=== PATIENT | male | born 1950 | race Two or more races ===

== ENCOUNTER 2019-03-22 14:32 | Emergency (ER) | payer BC ==
[~2019-03-22] VITALS: Ht 170.2 cm; Wt 83.9 kg
[2019-03-22 14:40] VITALS: BP 158/108
== END 2019-03-22 17:41 | disposition home or self-care (01) ==
LOC: ER 14:35
DX: J40 Bronchitis, not specified as acute or chronic (principal)
CPT/HCPCS: 71045-TC

== ENCOUNTER 2019-11-19 08:15 | Inpatient (IN) | payer BC ==
[~2019-11-19] VITALS: Ht 167.6 cm; Wt 81.6 kg
--- NOTE | 2019-11-19 08:23 | NUR ---
urine collected and sent to lab
--- NOTE | 2019-11-19 08:23 | NUR ---
Dr. Ridley at bedside for eval
--- NOTE | 2019-11-19 08:23 | NUR ---
patient came in to the er c/o abd pain and nausea vomiting since yesterday 03/08 ps. On room air, breathing evenly and unlabored. connected to the monitor and pulse ox. kept comfortable, will continue to monitor accordingly.
--- NOTE | 2019-11-19 08:32 | NUR ---
wheeled patient via gurney to ct scan
[2019-11-19 08:38] LABS: BASOPHILS % (AUTO) 0.3 % (0.0-2.0); EOSINOPHILS % (AUTO) 0.7 % (0.0-6.0); HEMATOCRIT 44 % (39-51); HEMOGLOBIN 14.8 g/dL (13.5-17.5); LYMPHOCYTES # (AUTO) 1.3 /CMM (0.8-4.8); LYMPHOCYTES % (AUTO) 18.1 % (20.0-44.0); MEAN CORPUSCULAR HGB CONC 34 g/dl (31.0-36.0); MEAN CORPUSCULAR VOLUME 98 fL (80-96); MONOCYTES # (AUTO) 0.9 /CMM (0.1-1.30); MONOCYTES % (AUTO) 12.7 % (2.0-12.0); NEUTROPHILS # (AUTO) 4.9 /CMM (1.8-8.9); NEUTROPHILS % (AUTO) 68.2 % (43.0-81.0); PLATELET COUNT (AUTO) 260 /CMM (150-450); RED BLOOD CELL COUNT(AUTO) 4.42 MIL/uL (4.5-6.0); WHITE BLOOD COUNT (AUTO) 7.2 K/uL (4.3-11.0)
[2019-11-19 08:43] LABS: BILIRUBIN,URINE SMALL (NEGATIVE); BLOOD, URINE Small Ery/uL (NEGATIVE); COLOR,URINE DARK YELLOW (YELLOW); KETONES,URINE 15 (NEGATIVE); LEUKOCYTE ESTERASE ,URINE Negative (NEGATIVE); NITRITE, URINE Negative (NEGATIVE); PH,URINE 7.5 (5.0-8.0); PROTEIN,URINE 30 mg/dl (NEGATIVE); UGLUCOSE Negative (NEGATIVE)
[2019-11-19 08:44] LABS: APPEARANCE,URINE HAZY (CLEAR)
[2019-11-19 08:47] LABS: CALCIUM, SERUM 8.7 mg/dL (8.5-10.1); CREATININE 0.9 mg/dL (0.6-1.3); POTASSIUM 3.6 mmol/L (3.5-5.1)
[2019-11-19 08:50] LABS: BACTERIA,URINE Few /HPF (None Seen); MUCUS,URINE Moderate /LPF (None Seen); SQUAMOUS EPITHELIAL CELL,UR Few /HPF (None Seen); WBC,URINE 0-2 /HPF (0-3)
[2019-11-19 08:55] LABS: ALBUMIN 4.3 g/dL (3.4-5.0); BILIRUBIN,DIRECT 0.1 mg/dL (0.0-0.2); BILIRUBIN,TOTAL 0.7 mg/dL (0.2-1.0); TOTAL PROTEIN, SERUM 7.8 g/dL (6.4-8.2)
[2019-11-19] MEDS ORDERED: ONDANSETRON HCL/PF 4 MG/2 ML VIAL ONE (09:12)
[2019-11-19] MEDS ORDERED: IV NS 0.9% 50 ML IV ONE (09:30)
[2019-11-19] MEDS ORDERED: ONDANSETRON HCL/PF - ER 4 MG/2 ML VIAL IV ONE (09:30)
[2019-11-19] MEDS ORDERED: IV NS 0.9% 1,000 ML IV ONE ×3 (09:30)
--- NOTE | 2019-11-19 09:43 | NUR ---
Report given to Gagandeep MAGANA for amparo
--- NOTE | 2019-11-19 09:58 | NUR ---
wheeled patient via gurney accompanied by EMT in no distress. RN at bedside to assume care.
[2019-11-19] MEDS ORDERED: Z GUARD REMEDY 2 OZ OINT TP PRN (10:00)
[2019-11-19] MEDS ORDERED: ACETAMINOPHEN 650 MG/SUPP.RECT RC PRN (10:00)
[2019-11-19] MEDS ORDERED: LORAZEPAM INJ 2 MG/ML VIAL IV PRN (10:00)
[2019-11-19] MEDS ORDERED: ONDANSETRON HCL/PF 4 MG/2 ML VIAL IVP PRN (10:00)
--- NOTE | 2019-11-19 10:00 | NUR ---
MS/RN NOTES RECEIVED REPORT FROM ER WITH A 69 YEAR OLD A MALE WITH ADMITTING DIAGNOSIS OF ACUTE ABDOMINAL PAIN . PATIENT IS ALERT AND ORIENTED X4. INITIAL VITAL SIGN TAKEN AND RECORDED. WILL CONTINUE TO MONITOR.
[2019-11-19] MEDS: PANTOPRAZOLE 40 MG VIAL IV SCH (10:49)
[2019-11-19 11:30] VITALS: BP 140/80
[2019-11-19] MEDS: MORPHINE SULFATE INJ 2 MG/ML DISP.SYRIN IV PRN ×2 (12:45→18:06)
--- NOTE | 2019-11-19 12:46 | NUR ---
MS/RN NOTES PATIENT COMPLAINED OF PAIN RATED 10/10 MORPHINE 4MG IV WAS GIVEN. WILL CONTINUE TO MONITOR.
[2019-11-19 16:00] VITALS: BP 134/66
--- NOTE | 2019-11-19 17:22 | NUR ---
MS/RN NOTES PATIENT COMPLAINED OF PAIN RATED 6/10. SERGIO HERNANDES NORCO 5/325 MG 1 TAB PO EVERY 4 HOURS AND PRN. NOTED AND CARRIED OUT. WILL CONTINUE TO MONITOR. Addendum: 11/19/19 at 1746 by CARMENCITA ANDRE RN WRONG PATIENT
[2019-11-19] MEDS ORDERED: HYDROCODONE/APAP 5/325MG 1 EACH TABLET PO PRN (17:30)
--- NOTE | 2019-11-19 19:24 | NUR ---
MS/RN CLOSING NOTES PATIENT IN BED, ALERT AND ORIENTED X 3. AFEBRILE WITH NO S/S OF DISTRESS OBSERVED. RIGHT AC G22 WITH IV FLUID OF NS 1L AT 100 ML/HR ON AND INFUSING WELL. NO COMPLAINTS OF PAIN/DISCOMFORT REPORTED AT THIS TIME. BED LOW AND LOCKED ON SEMI FOWLERS POSITION. CALL LIGHT WITHIN REACH. WILL ENDORSED TO CRATE BUILDER FOR ANGELA.
--- NOTE | 2019-11-19 19:45 | NUR ---
MS RN OPENING NOTES RECEIVED PATIENT FROM MORNING SHIFT, ALERT AND ORIENTED X 3. CHINESE SPEAKING VERBALLY RESPONSIVE AND ABLE TO FOLLOW DIRECTIONS. BREATHING REGULAR AND UNLABORED ON ROOM AIR. RIGHT AC G22 IV LINE INTACT AND PATENT, INFUSING WELL WITH NO BLEEDING OR S/S OF INFILTRATION NOTED. DENIES SUICIDAL IDEATION OR PAIN/DISCOMFORT AT THIS TIME. ON NOTHING BY MOUTH. BED LOW AND LOCKED ON SEMI FOWLERS POSITION. CALL LIGHT IN REACH. WILL CONTINUE TO MONITOR.
[2019-11-19 20:00] VITALS: BP 115/66
--- NOTE | 2019-11-19 20:45 | NUR ---
MS RN NOTES SEEN AND EXAMINED BY DR.SAM GONSALEZ WITH ORDERS TO INSERT NG TUBE IF PATIENT VOMITS AND SMALL BOWEL FOLLOW-TROUGH IN AM, PATIENT NOTIFIED AT BEDSIDE.
[2019-11-19] MEDS: IV NS 0.9% 1,000 ML IV PRN (23:42)
--- NOTE | 2019-11-20 06:45 | NUR ---
MS RN CLOSING NOTES PATIENT IN BED ALERT AND ORIENTED X 3. AFEBRILE WITH NO S/S OF DISTRESS OBSERVED. RIGHT AC G22 IV LINE PATENT AND INFUSING WELL. NO COMPLAINTS OF PAIN/DISCOMFORT REPORTED THE WHOLE SHIFT. MAINTAINED ON NOTHING BY MOUTH. BED LOW AND LOCKED ON SEMI FOWLERS POSITION. CALL LIGHT IN REACH. WILL ENDORSE TO MORNING SHIFT FOR ANGELA.
[2019-11-20 07:10] LABS: BASOPHILS % (AUTO) 0.2 % (0.0-2.0); EOSINOPHILS % (AUTO) 1.5 % (0.0-6.0); HEMATOCRIT 39 % (39-51); HEMOGLOBIN 13.2 g/dL (13.5-17.5); LYMPHOCYTES % (AUTO) 19.6 % (20.0-44.0); MEAN CORPUSCULAR HGB CONC 34 g/dl (31.0-36.0); MEAN CORPUSCULAR VOLUME 98 fL (80-96); MONOCYTES # (AUTO) 0.5 /CMM (0.1-1.30); NEUTROPHILS # (AUTO) 3.3 /CMM (1.8-8.9); NEUTROPHILS % (AUTO) 67.7 % (43.0-81.0); PLATELET COUNT (AUTO) 215 /CMM (150-450); WHITE BLOOD COUNT (AUTO) 4.9 K/uL (4.3-11.0)
[2019-11-20 07:20] LABS: CREATININE 0.7 mg/dL (0.6-1.3); MAGNESIUM 2.1 mg/dL (1.8-2.4); POTASSIUM 3.7 mmol/L (3.5-5.1)
--- NOTE | 2019-11-20 07:35 | NUR ---
MS/RN NOTE THE PATIENT IS RECEIVED IN BED. PATIENT IS ALERT AND ORIENTED X4. IN ROOM AIR AND DENIES SOB. RESPIRATION REGULAR AND UNLABORED. DENIES PAIN. THE PATIENT IS IN NO APPARENT DISTRESS. NPO. ABDOMEN SOFT AND NON-DISTENDED. RAC G 22 PATENT AND NS INFUSING AT 100ML/HR AND NO S/S INFILTRATION NOTED. BED LOW AND LOCKED. SIDE RAILS UP X2. CALL LIGHT WITHIN REACH. WILL CONTINUE TO MONITOR.
[2019-11-20 08:00] VITALS: BP 116/70
[2019-11-20] MEDS ORDERED: DIATR MEGLU/DIATRIZOATE SODIUM 120 ML BOTTLE (GASTROGRAPHIN) ONE (08:15)
[2019-11-20] MEDS: PANTOPRAZOLE 40 MG VIAL IV SCH (08:28)
--- NOTE | 2019-11-20 08:28 | NUR ---
MS/RN NOTE THE PATIENT TRANSFERRED TO RADIOLOGY DEPARTMENT FOR SMALL BOWEL STUDY. THE PATIENT LEFT THE UNIT IN STABLE CONDITION.
--- NOTE | 2019-11-20 10:04 | NUR ---
MS/RN NOTE THE PATIENT IS BROUGHT BACK FROM RADIOLOGY DEPARTMENT. REMAINS NPO. NO NAUSEA OR VOMITING NOTED. WILL CONTINUE TO MONITOR.
[2019-11-20] MEDS: ENOXAPARIN SODIUM 40 MG/0.4 ML DISP.SYRIN SQ SCH (10:07)
--- NOTE | 2019-11-20 15:16 | NUR ---
/[place] NOTE CHARLIE SAENZ IS MADE AWARE OF SMALL BOWEL XRAY RESULT. WAITING FOR ORDERS. Addendum: 11/20/19 at 1524 by ANTHONY MICHAEL RN /[place] NOTE RECEIVED ORDER FROM CHARLIE SAENZ FOR CLEAR LIQUID DIET STARTING FROM [facility] 11/20/19 AND ADVANCE DIET TOLERATED TO LOW FAT/CHOLESTEROL DIET, INFORM DR GONSALEZ IS THE PATIENT GETS ABDOMINAL PAIN. ORDERS READ BACK, VERIFIED. NOTED AND CARRIED OUT.
[2019-11-20 16:00] VITALS: BP 121/73
--- NOTE | 2019-11-20 18:08 | NUR ---
MS/RN NOTE THE PATIENT IS ALERT AND ORIENTED X4. IN ROOM AIR AND OXYGEN SATURATION IS AT 98%. DENIES SOB. BREATHING REGULAR AND UNLABORED. TOLERATED CLEAR LIQUID DIET WELL. DENIES ANY PAIN. ABDOMEN SOFT AND NON-DISTENDED. DENIES NAUSEA/VOMITING. RAC G 22 PATENT AND NS INFUSING AT 100ML/HR AND NO S/S INFILTRATION NOTED. BED LOW AND LOCKED. SIDE RAILS UP X2. CALL LIGHT WITHIN REACH. WILL ENDORSE TO SUPERVISOR VOLUNTEER SERVICES.
--- NOTE | 2019-11-20 19:20 | NUR ---
RN OPENING NOTES Received patient awake, resting on bed, A/O x4, able to attend personal needs independently. Patient denies any discomfort at this time. Call light within easy reach. Will continue to monitor accordingly.
[2019-11-20] MEDS: IV NS 0.9% 1,000 ML IV PRN (19:45)
[2019-11-20 20:00] VITALS: BP 122/71
[2019-11-20] MEDS: MORPHINE SULFATE INJ 2 MG/ML DISP.SYRIN IV PRN (21:56)
[2019-11-21] MEDS: IV NS 0.9% 1,000 ML IV PRN (06:12)
--- NOTE | 2019-11-21 07:00 | NUR ---
MS RN NOTES PATIENT IN BED ALERT ORIENTED X 4. NO ACUTE DISTRESS NOTED. BREATHING UNLABORED. NO COMPLAINT OF PAIN AT THIS TIME. IV ACCESS PATENT AND INTACT. NO REDNESS , NO SWELLING NOTED. SAFETY MEASURES IN PLACE. CALL LIGHT WITHIN REACH WILL CONTINUE TO MONITOR ACCORDINGLY.
[2019-11-21 07:19] LABS: BASOPHILS % (AUTO) 0.6 % (0.0-2.0); EOSINOPHILS % (AUTO) 4.2 % (0.0-6.0); HEMATOCRIT 40 % (39-51); HEMOGLOBIN 13.3 g/dL (13.5-17.5); LYMPHOCYTES # (AUTO) 1.1 /CMM (0.8-4.8); MEAN CORPUSCULAR HGB CONC 34 g/dl (31.0-36.0); MEAN CORPUSCULAR VOLUME 98 fL (80-96); MONOCYTES # (AUTO) 0.5 /CMM (0.1-1.30); MONOCYTES % (AUTO) 11.9 % (2.0-12.0); NEUTROPHILS # (AUTO) 2.6 /CMM (1.8-8.9); NEUTROPHILS % (AUTO) 58.3 % (43.0-81.0); PLATELET COUNT (AUTO) 235 /CMM (150-450); RED BLOOD CELL COUNT(AUTO) 4.03 MIL/uL (4.5-6.0); WHITE BLOOD COUNT (AUTO) 4.4 K/uL (4.3-11.0)
[2019-11-21 07:39] LABS: CALCIUM, SERUM 8.4 mg/dL (8.5-10.1); POTASSIUM 3.7 mmol/L (3.5-5.1)
[2019-11-21 08:00] VITALS: BP 148/81
[2019-11-21] MEDS: ENOXAPARIN SODIUM 40 MG/0.4 ML DISP.SYRIN SQ SCH (08:49)
[2019-11-21] MEDS: PANTOPRAZOLE 40 MG VIAL IV SCH (08:49)
--- NOTE | 2019-11-21 10:46 | NUR ---
MS RN NOTES PATIENT SEEN AND EVALUATED BY ALETHA CHI SPOOLER OPERATOR AUTOMATIC, WITH NEW ORDERS TO DISCONTINUE PREVIOUS DIET ORDER CHANGE TO REGULAR LOW FAT, LOW CHOLESTEROL DIET, ORDERS CLARIFIED AND READ BACK, NOTED AND CARRIED OUT.
[2019-11-21 16:00] VITALS: BP 132/80
--- NOTE | 2019-11-21 18:55 | NUR ---
MS RN NOTES PATIENT IN BED ALERT ORIENTED X 4. NO ACUTE DISTRESS NOTED. BREATHING UNLABORED. NO COMPLAINT OF PAIN AT THIS TIME. IV ACCESS PATENT AND INTACT. NO REDNESS , NO SWELLING NOTED. NEEDS ATTENDED AND ANTICIPATED. TOLERATED CURRENT DIET WELL. SAFETY MEASURES IN PLACE. CALL LIGHT WITHIN REACH. WILL ENDORSE TO NIGHT NURSE FOR CONTINUITY OF CARE.
--- NOTE | 2019-11-21 19:15 | NUR ---
RN OPENING NOTES Received patient awake, resting on bed. No distress/discomfort noted at this time. Pt attend personal needs independently. Call light within easy reach.
[2019-11-21 19:45] VITALS: BP 131/83
[2019-11-22 07:43] LABS: BASOPHILS # (AUTO) 0.1 /CMM (0.0-0.2); BASOPHILS % (AUTO) 1.2 % (0.0-2.0); EOSINOPHILS % (AUTO) 3.8 % (0.0-6.0); HEMATOCRIT 42 % (39-51); HEMOGLOBIN 14.2 g/dL (13.5-17.5); LYMPHOCYTES % (AUTO) 22.3 % (20.0-44.0); MEAN CORPUSCULAR HGB CONC 34 g/dl (31.0-36.0); MEAN CORPUSCULAR VOLUME 97 fL (80-96); MONOCYTES # (AUTO) 0.6 /CMM (0.1-1.30); MONOCYTES % (AUTO) 12.9 % (2.0-12.0); NEUTROPHILS # (AUTO) 2.8 /CMM (1.8-8.9); NEUTROPHILS % (AUTO) 59.8 % (43.0-81.0); PLATELET COUNT (AUTO) 259 /CMM (150-450); RED BLOOD CELL COUNT(AUTO) 4.29 MIL/uL (4.5-6.0); WHITE BLOOD COUNT (AUTO) 4.7 K/uL (4.3-11.0)
[2019-11-22 07:56] LABS: CALCIUM, SERUM 8.7 mg/dL (8.5-10.1); CREATININE 0.9 mg/dL (0.6-1.3); POTASSIUM 3.6 mmol/L (3.5-5.1)
[2019-11-22 08:00] VITALS: BP 135/84
[2019-11-22] MEDS: ENOXAPARIN SODIUM 40 MG/0.4 ML DISP.SYRIN SQ SCH (08:56)
[2019-11-22] MEDS: PANTOPRAZOLE 40 MG VIAL IV SCH (08:59)
--- NOTE | 2019-11-22 16:47 | NUR ---
MS RECORDS MANAGEMENT DIRECTOR NOTES PATIENT DISCHARGE HOME WITH STABLE VITAL SIGNS. ALERT ORIENTED X 4, AMBULATORY WITH STEADY GAIT. DISCHARGE INSTRUCTIONS GIVEN TO THE PATIENT INCLUDING FOLLOW UP WITH PRIMARY DOCTOR AND SURGERY DOCTOR IN 1 WEEK, VERBALIZED UNDERSTANDING. IV ACCESS REMOVED, NO REDNESS,NO BLEEDING, NO SWELLING NOTED. ALL BELONGINGS ACCOUNTED FOR. ASSISTED TO THE LOBBY, PICKED UP VIA PRIVATE CAR BY FAMILY IN STABLE CONDITION.
== END 2019-11-22 16:47 | disposition home or self-care (01) | DRG 390 ==
LOC: ER 08:22 → MEDSG2 09:47
PROVIDERS: ADMIT Nurse Practitioner Acute Care; ATTEND Nurse Practitioner Acute Care
DX: K56.609 Unspecified intestinal obstruction, unspecified as to partial versus complete obstruction (principal); K82.8 Other specified diseases of gallbladder; K56.7 Ileus, unspecified; Z68.29 Body mass index [BMI] 29.0-29.9, adult
CPT/HCPCS: 36415; 74250-TC; 80048-TC; 80061-TC; 80076-TC; 81000-TC; 83690-TC; 83735-TC; 84100-TC; 85025-TC; 87081-TC; 93307-TC; A4216; C9113; G0378; J1650; J2270; J2405; J7030; Q9963; U0003-CS

== ENCOUNTER 2020-02-21 16:21 | Emergency (ER) | payer BC ==
[~2020-02-21] VITALS: Ht 167.6 cm; Wt 75.7 kg
[2020-02-21 16:32] VITALS: BP 134/77
[2020-02-21] MEDS ORDERED: KETOROLAC TROMETHAMINE INJ 60 MG/2 ML VIAL IM ONE (17:30)
[2020-02-21] MEDS ORDERED: KETOROLAC TROMETHAMINE INJ 30 MG/ML VIAL ONE (17:32)
--- NOTE | 2020-02-21 17:46 | NUR ---
MEDICATED ORDERED,NO ADVERSE RXN NOTED
--- NOTE | 2020-02-21 17:47 | NUR ---
Patient discharged to in stable condition. Written and verbal after care instructions given. Patient verbalizes understanding of instruction.
== END 2020-02-21 18:00 | disposition home or self-care (01) ==
LOC: ER 16:32
DX: S16.1XXA Strain of muscle, fascia and tendon at neck level, initial encounter (principal); X58.XXXA Exposure to other specified factors, initial encounter; Y93.89 Activity, other specified; Y92.89 Other specified places as the place of occurrence of the external cause; Y99.8 Other external cause status
CPT/HCPCS: 96372; 99283; J1885

== ENCOUNTER 2020-03-28 07:28 | Outpatient (CLI) | payer BC ==
[2020-03-28 08:32] LABS: BASOPHILS # (AUTO) 0.1 /CMM (0.0-0.2); BASOPHILS % (AUTO) 1.1 % (0.0-2.0); EOSINOPHILS % (AUTO) 2.6 % (0.0-6.0); HEMATOCRIT 44 % (39-51); HEMOGLOBIN 14.9 g/dL (13.5-17.5); LYMPHOCYTES # (AUTO) 1.4 /CMM (0.8-4.8); LYMPHOCYTES % (AUTO) 28.4 % (20.0-44.0); MEAN CORPUSCULAR HGB CONC 34 g/dl (31.0-36.0); MEAN CORPUSCULAR VOLUME 98 fL (80-96); MONOCYTES # (AUTO) 0.6 /CMM (0.1-1.30); MONOCYTES % (AUTO) 12.1 % (2.0-12.0); NEUTROPHILS # (AUTO) 2.7 /CMM (1.8-8.9); NEUTROPHILS % (AUTO) 55.8 % (43.0-81.0); PLATELET COUNT (AUTO) 236 /CMM (150-450); RED BLOOD CELL COUNT(AUTO) 4.47 MIL/uL (4.5-6.0); WHITE BLOOD COUNT (AUTO) 4.8 K/uL (4.3-11.0)
[2020-03-28 08:48] LABS: APPEARANCE,URINE SL CLOUDY (CLEAR); BILIRUBIN,URINE NEGATIVE (NEGATIVE); BLOOD, URINE SMALL Ery/uL (NEGATIVE); COLOR,URINE YELLOW (YELLOW); KETONES,URINE NEGATIVE (NEGATIVE); LEUKOCYTE ESTERASE ,URINE NEGATIVE (NEGATIVE); NITRITE, URINE NEGATIVE (NEGATIVE); PROTEIN,URINE NEGATIVE (NEGATIVE); UGLUCOSE NEGATIVE (NEGATIVE); UROBILINOGEN,URINE 0.2 EU/dL (0.2)
[2020-03-28 09:04] LABS: ALBUMIN 4.2 g/dL (3.4-5.0); BILIRUBIN,TOTAL 0.6 mg/dL (0.2-1.0); CALCIUM, SERUM 8.9 mg/dL (8.5-10.1); CREATININE 0.9 mg/dL (0.6-1.3); POTASSIUM 3.9 mmol/L (3.5-5.1)
[2020-03-28 09:16] LABS: FREE T4 (FREE THYROXINE) 0.99 ng/dL (0.76-1.46); PROSTATE SPECIFIC ANTIGEN SCR 2.46 ng/mL (0.00-4.00); THYROID STIMULATING HORMONE 2.358 uIU/mL (0.358-3.74); URIC ACID 5.2 mg/dL (2.6-7.2)
[2020-03-29 08:06] LABS: FOLIC ACID 12.9 ng/mL (>3.0)
== END 2020-03-28 23:59 | disposition home or self-care (01) ==
LOC: LAB 07:28
PROVIDERS: ATTEND Legal Medicine
DX: I10 Essential (primary) hypertension (principal); E11.9 Type 2 diabetes mellitus without complications; E78.00 Pure hypercholesterolemia, unspecified; E03.9 Hypothyroidism, unspecified; D64.9 Anemia, unspecified; N40.0 Benign prostatic hyperplasia without lower urinary tract symptoms; E55.9 Vitamin D deficiency, unspecified; R53.1 Weakness; Z00.00 Encounter for general adult medical examination without abnormal findings
CPT/HCPCS: 36415; 80053-TC; 80061-TC; 81000-TC; 82306; 82626; 82728-TC; 83540-TC; 84153-TC; 84402; 84403; 84439-TC; 84443-TC; 84550-TC; 85025-TC; 87086-TC

== ENCOUNTER 2021-03-17 03:00 | Inpatient (IN) | payer BC ==
[~2021-03-17] VITALS: Ht 172.7 cm; Wt 86.2 kg
--- NOTE | 2021-03-17 03:15 | NUR ---
PATIENT BIBSELF C/O MID EPIGASTRIC PAIN FOR THE PAST HR AGO. PATIENT + NAUSEOUS. PATIENT IS A/O X 4, RR EVEN AND UNLABORED, NO SOB NOTED, PATIENT CONNECTED TO APPLICATION PROJECT LEADER AND POX.
--- NOTE | 2021-03-17 03:19 | NUR ---
at bed side
[2021-03-17] MEDS ORDERED: MAG HYDROX/AL HYDROX/SIMETH 30 ML UDC ONE (03:25)
[2021-03-17] MEDS ORDERED: LIDOCAINE VISCOUS 2% UD 15 ML UDC ONE (03:25)
[2021-03-17] MEDS ORDERED: LIDOCAINE VISCOUS 2% UD 15 ML UDC MM ONE (03:30)
[2021-03-17] MEDS ORDERED: MAG HYDROX/AL HYDROX/SIMETH 30 ML UDC PO ONE (03:30)
[2021-03-17] MEDS ORDERED: IV NS 0.9% 500 ML BAG IV ONE (03:30)
[2021-03-17 03:35] LABS: BASOPHILS % (AUTO) 0.5 % (0.0-2.0); EOSINOPHILS % (AUTO) 2.5 % (0.0-6.0); HEMATOCRIT 42 % (39-51); HEMOGLOBIN 14.2 g/dL (13.5-17.5); LYMPHOCYTES # (AUTO) 0.9 K/uL (0.8-4.8); LYMPHOCYTES % (AUTO) 12.4 % (20.0-44.0); MEAN CORPUSCULAR HGB CONC 34 g/dl (31.0-36.0); MEAN CORPUSCULAR VOLUME 99 fL (80-96); MONOCYTES # (AUTO) 0.7 K/uL (0.1-1.30); MONOCYTES % (AUTO) 9.6 % (2.0-12.0); NEUTROPHILS # (AUTO) 5.5 K/uL (1.8-8.9); PLATELET COUNT (AUTO) 238 K/uL (150-450); RED BLOOD CELL COUNT(AUTO) 4.21 MIL/uL (4.5-6.0); WHITE BLOOD COUNT (AUTO) 7.4 K/uL (4.3-11.0)
[2021-03-17 03:45] LABS: CALCIUM, SERUM 8.7 mg/dL (8.5-10.1); CARBON DIOXIDE 28 mmol/L (21-32); CHLORIDE 105 mmol/L (98-107); GLUCOSE 129 mg/dL (74-106); POTASSIUM 3.5 mmol/L (3.5-5.1); SODIUM SERUM 142 mmol/L (136-145); UREA NITROGEN, BLOOD 15 mg/dL (7-18)
[2021-03-17 03:51] LABS: ALANINE AMINOTRANSFERASE 45 U/L (12-78); ALBUMIN 4.2 g/dL (3.4-5.0); ALKALINE PHOSPHATASE 59 U/L (46-116); ASPARTATE AMINOTRANSFERASE 25 U/L (15-37); BILIRUBIN,DIRECT 0.1 mg/dL (0.0-0.2); BILIRUBIN,TOTAL 0.5 mg/dL (0.2-1.0); LIPASE 129 U/L (73-393); TOTAL PROTEIN, SERUM 7.7 g/dL (6.4-8.2)
[2021-03-17] MEDS ORDERED: ONDANSETRON HCL/PF 4 MG/2 ML VIAL ONE (03:51)
[2021-03-17] MEDS ORDERED: MORPHINE SULFATE INJ 4 MG/ML DISP.SYRIN ONE (03:52)
[2021-03-17] MEDS ORDERED: MORPHINE SULFATE INJ 2 MG/ML DISP.SYRIN IV ONE (04:00)
[2021-03-17] MEDS ORDERED: ONDANSETRON HCL/PF 4 MG/2 ML VIAL IVP ONE (04:00)
--- NOTE | 2021-03-17 04:36 | NUR ---
US TECH AT BED SIDE
--- NOTE | 2021-03-17 04:50 | NUR ---
URINE COLLECTED AND SENT TO LAB
[2021-03-17] MEDS ORDERED: IOHEXOL-300 100 ML VIAL IV ONE (05:12)
[2021-03-17] MEDS ORDERED: IV NS 0.9% 250 ML IV ONE (05:12)
[2021-03-17 05:26] LABS: BILIRUBIN,URINE NEGATIVE (NEGATIVE); COLOR,URINE YELLOW (YELLOW); LEUKOCYTE ESTERASE ,URINE NEGATIVE (NEGATIVE); NITRITE, URINE NEGATIVE (NEGATIVE); PH,URINE 6.5 (5.0-8.0); PROTEIN,URINE NEGATIVE (NEGATIVE); UGLUCOSE NEGATIVE (NEGATIVE)
--- NOTE | 2021-03-17 06:28 | NUR ---
PAGES MARIA FERNANDA ORTIZ
[2021-03-17 06:34] LABS: BACTERIA,URINE None seen /HPF (None Seen); SQUAMOUS EPITHELIAL CELL,UR Rare /HPF (None Seen); WBC,URINE 0-2 /HPF (0-3)
--- NOTE | 2021-03-17 06:48 | NUR ---
, JOSE L [phone]
--- NOTE | 2021-03-17 06:51 | NUR ---
MRSA SWAB COLLECTED AND SENT TO LAB. PATIENT'S BELONGINGS LIST DONE.
--- NOTE | 2021-03-17 07:05 | NUR ---
COVID SWAB COLLECTED AND SENT TO LAB
--- NOTE | 2021-03-17 07:59 | NUR ---
PANEL ON-CALL PAGED
[2021-03-17] MEDS ORDERED: LORAZEPAM INJ 2 MG/ML VIAL IV PRN (09:30)
[2021-03-17] MEDS ORDERED: Z GUARD REMEDY 2 OZ OINT TP PRN (09:30)
[2021-03-17] MEDS ORDERED: ONDANSETRON HCL/PF 4 MG/2 ML VIAL IVP PRN (09:30)
[2021-03-17] MEDS ORDERED: MORPHINE SULFATE INJ 2 MG/ML DISP.SYRIN IV PRN (09:30)
--- NOTE | 2021-03-17 09:47 | NUR ---
BED 329
--- NOTE | 2021-03-17 10:30 | NUR ---
Patient arrived via gurney at 10:30am from ER. Patient AO X 4, able to make needs known, can follow simple commands, no apparent distress noted, breathing even and unlabored. Admitting hospitalist made aware of the patient's arrival. Patient admitting diagnosis small bowel obstruction. Patient's vital signs within normal limits, no complain of any abdominal pain or discomfort at this time, bowel sounds present in all quadrants. Patient on NPO diet and has IV fluids 0.9 NS at 75ml/hr infusing at his right ac (gauge 20). Skin intact, warm to touch, no pallor or cyanosis noted. Patient oriented with use of call lights, use of bed control, use of telephone and tv control, also introduces WOOD CABINETMAKER and RN assigned for today, verbalized understanding and gratitude. All belongings written in the inventory list. All needs attended, kept clean and dry, call light left within reach, safety precautions in place, brakes locked, side rails up X 2, will endorse to next shift for continuity of care.
--- NOTE | 2021-03-17 10:37 | NUR ---
REPORT GIVEN TO MARK MAGANA. PATIENT A/OX4, TRANSFERRED TO ROOM 329 IN STABLE CONDITION.
[2021-03-17] MEDS: IV NS 0.9% 1,000 ML IV PRN (10:42)
[2021-03-17] MEDS: PANTOPRAZOLE 40 MG VIAL IV SCH (10:42)
[2021-03-17 10:53] VITALS: BP 146/90
[2021-03-17] MEDS: ENOXAPARIN SODIUM 40 MG/0.4 ML DISP.SYRIN SQ SCH (10:55)
[2021-03-17 15:55] VITALS: BP 128/53
--- NOTE | 2021-03-17 16:18 | NUR ---
Patient seen and examined by CHARLIE Peck for surgery consult, patient has an order for NGT to continuous wall suction, patient preferred not to have the NGT inserted, explained risks and benefits thrice, still refused, respected patient's wishes. MD/SEAM STEAMER from surgery made aware. Patient has an order for XR small bowel follow through (with gastrograffin), patient signed consent and agreed to take the contrast by mouth, will monitor closely for any changes.
[2021-03-17] MEDS ORDERED: DIATR MEGLU/DIATRIZOATE SODIUM 120 ML BOTTLE (GASTROGRAPHIN) ONE ×2 (17:01)
--- NOTE | 2021-03-17 17:31 | NUR ---
Patient left unit at 1730, for the procedure (XR small bowel follow through (with gastrograffin), left in stable condition.
--- NOTE | 2021-03-17 18:29 | NUR ---
RN CLOSING NOTES Patient AO X 4, able to make needs known, can follow simple commands, Faroese speaking. Respirations even and unlabored, no SOB, remained afebrile, no apparent distress noted, denies any pain or discomfort, no dizziness, no palpitations noted at this time. All medications given per MD order, tolerating well. All needs attended, kept clean and dry, safety precautions in place, brakes locked, side rails up X 2, call light left within reach, will endorse to next shift for continuity of care.
--- NOTE | 2021-03-17 18:41 | NUR ---
Patient came back from XR small bowel follow through (with gastrograffin) at 1840, no apparent distress noted, patient in stable condition.
--- NOTE | 2021-03-17 19:30 | NUR ---
MS RN OPENING NOTES PATIENT WAS SEEN AWAKE IN BED RESTING. PATIENT'S ALERT AND ORIENTED X4. PATIENT'S STABLE ON ROOM AIR IV ACCESS NOTED ON RAC GAUGE #20 WHICH IS INTACT, PATENT, AND FLUSHING WELL. PATIENT'S IN NO ACUTE DISTRESS AT THIS TIME. SAFETY MEASURES IN PLACE: BED LOCKED, SIDE RAILS UP X2, AND CALL LIGHT WITHIN REACH OF THE PATIENT. WILL CONTINUE TO MONITOR THE PATIENT.
[2021-03-17 20:00] VITALS: BP 119/79
--- NOTE | 2021-03-18 07:29 | NUR ---
MS RN CLOSING NOTES PATIENT WAS SEEN AWAKE IN BED RESTING. PATIENT'S ALERT AND ORIENTED X4. PATIENT'S STABLE ON ROOM AIR IV ACCESS NOTED ON RAC GAUGE #20 WHICH IS INTACT, PATENT, AND FLUSHING WELL. PATIENT'S IN NO ACUTE DISTRESS AT THIS TIME. SAFETY MEASURES IN PLACE: BED LOCKED, SIDE RAILS UP X2, AND CALL LIGHT WITHIN REACH OF THE PATIENT. ENDORSED CARE TO THE DAY SHIFT NURSE.
--- NOTE | 2021-03-18 07:30 | NUR ---
MS RN OPENING NOTES RECEIVED PATIENT ON BED, AWAKE AND A/O X4. ON ROOM AIR TOLERATING WELL. NO SOB NOTED. NOT IN DISTRESS. WITH NO COMPLAINTS OF PAIN AT THIS TIME. WITH IV ACCESS AT RIGHT AC WITH IVF NS AT 75ML/HR. SAFETY MEASURES IN PLACE: BED LOCKED, BED ALARM ON, SIDE RAILS UPX2, AND CALL LIGHT WITHIN REACH. WILL CONTINUE TO MONITOR THE PATIENT.
[2021-03-18 07:40] LABS: CALCIUM, SERUM 8.5 mg/dL (8.5-10.1); MAGNESIUM 2.3 mg/dL (1.8-2.4); PHOSPHORUS 3.3 mg/dL (2.5-4.9); POTASSIUM 3.7 mmol/L (3.5-5.1)
[2021-03-18 07:42] LABS: BASOPHILS % (AUTO) 0.7 % (0.0-2.0); EOSINOPHILS % (AUTO) 3.3 % (0.0-6.0); HEMATOCRIT 42 % (39-51); HEMOGLOBIN 14.3 g/dL (13.5-17.5); MEAN CORPUSCULAR HGB CONC 34 g/dl (31.0-36.0); MEAN CORPUSCULAR VOLUME 99 fL (80-96); MONOCYTES # (AUTO) 0.8 K/uL (0.1-1.30); NEUTROPHILS # (AUTO) 3.5 K/uL (1.8-8.9); PLATELET COUNT (AUTO) 228 K/uL (150-450); RED BLOOD CELL COUNT(AUTO) 4.22 MIL/uL (4.5-6.0); WHITE BLOOD COUNT (AUTO) 5.4 K/uL (4.3-11.0)
[2021-03-18 08:00] VITALS: BP 114/78
[2021-03-18] MEDS: ENOXAPARIN SODIUM 40 MG/0.4 ML DISP.SYRIN SQ SCH (08:23)
[2021-03-18] MEDS: PANTOPRAZOLE 40 MG VIAL IV SCH (08:23)
[2021-03-18] MEDS: IV NS 0.9% 1,000 ML IV PRN (11:02)
--- NOTE | 2021-03-18 14:50 | NUR ---
MS APPELLATE COURT CLERK NOTES PATIENT IS FOR DISCHARGE PER DOCTOR DREW'S ORDER. FOR DISCHARGE TO HOME. DISCHARGE INSTRUCTION AND EDUCATION PROVIDED TO PATIENT AND EXPLAINED MEDICATIONS AND PRESCRIPTIONS. PATIENT VERBALIZED UNDERSTANDING. DISCHARGE FORM AND BELONGINGS LIST FORM SIGNED BY PATIENT. ALL BELONGINGS ACCOUNTED FOR. NAME WRIST BAND AND IV LINE REMOVED. PATIENT WAS ACCOMPANIED TO THE [facility] AND WAS PICKED UP BY A FRIEND NAMED ANNIE VIA PRIVATE CAR. CHARGE NURSE AND MD ARE AWARE OF THE DISCHARGE.
== END 2021-03-18 14:55 | disposition home or self-care (01) | DRG 389 ==
LOC: ER 03:01 → MED 10:12
PROVIDERS: ADMIT Nurse Practitioner Acute Care
DX: K56.609 Unspecified intestinal obstruction, unspecified as to partial versus complete obstruction (principal); J98.11 Atelectasis; K44.9 Diaphragmatic hernia without obstruction or gangrene; K82.8 Other specified diseases of gallbladder; N40.0 Benign prostatic hyperplasia without lower urinary tract symptoms; K29.70 Gastritis, unspecified, without bleeding; Z20.822 Contact with and (suspected) exposure to COVID-19; Z68.29 Body mass index [BMI] 29.0-29.9, adult; E55.9 Vitamin D deficiency, unspecified
CPT/HCPCS: 36415; 71045-TC; 74250-TC; 76705-TC; 80048-TC; 80076-TC; 81001; 83690-TC; 83735-TC; 84100-TC; 84484-TC; 85025-TC; 87081-TC; C9113; C9803; G0378; J1650; J2270; J2405; J7030; J7040; J7050; Q9963; Q9967

== ENCOUNTER 2021-07-30 17:46 | Emergency (ER) | payer BC ==
[~2021-07-30] VITALS: Ht 172.7 cm; Wt 81.6 kg
[2021-07-30] MEDS ORDERED: IV NS 0.9% 1,000 ML BAG IV ONE (18:30)
[2021-07-30] MEDS ORDERED: ONDANSETRON HCL/PF 4 MG/2 ML VIAL IVP ONE (18:30)
[2021-07-30] MEDS ORDERED: HYDROMORPHONE INJ 2 MG/ML DISP.SYRIN IV ONE (18:30)
--- NOTE | 2021-07-30 18:34 | NUR ---
DR SHEN MEANT TO ORDER MORPHINE 4 MG INSTEAD OF DILAUDID
[2021-07-30] MEDS ORDERED: MORPHINE SULFATE INJ 2 MG/ML DISP.SYRIN ONE (18:41)
[2021-07-30] MEDS ORDERED: ONDANSETRON HCL/PF 4 MG/2 ML VIAL ONE (18:42)
[2021-07-30] MEDS ORDERED: IOHEXOL-300 100 ML VIAL IV ONE (18:47)
[2021-07-30] MEDS ORDERED: CT SWABBABLE VALVE TRANS SET 1 EA INFUS.SET MC ONE (18:47)
[2021-07-30] MEDS ORDERED: IV NS 0.9% 250 ML IV ONE (18:47)
[2021-07-30] MEDS ORDERED: MORPHINE SULFATE INJ 2 MG/ML DISP.SYRIN IV ONE (19:00)
[2021-07-30 19:03] LABS: CALCIUM, SERUM 8.6 mg/dL (8.5-10.1); POTASSIUM 3.6 mmol/L (3.5-5.1)
[2021-07-30 19:09] LABS: ALBUMIN 3.9 g/dL (3.4-5.0); BILIRUBIN,DIRECT 0.1 mg/dL (0.0-0.2); BILIRUBIN,TOTAL 0.5 mg/dL (0.2-1.0); TOTAL PROTEIN, SERUM 7.9 g/dL (6.4-8.2)
[2021-07-30] MEDS ORDERED: KETOROLAC TROMETHAMINE INJ 30 MG/ML VIAL IV ONE (19:30)
[2021-07-30] MEDS ORDERED: HYDR-4209 PO ×2 (19:42→19:43)
[2021-07-30] MEDS ORDERED: IBUP-1957 PO ×2 (19:42→19:43)
[2021-07-30] MEDS ORDERED: CIPR500T5 PO ×2 (19:42→19:43)
[2021-07-30] MEDS ORDERED: METR-147 PO ×2 (19:42→19:43)
[2021-07-30] MEDS ORDERED: KETOROLAC TROMETHAMINE 15 MG/ML VIAL ONE (19:44)
--- NOTE | 2021-07-30 19:55 | NUR ---
Patient discharged to home in stable condition. Written and verbal after care instructions given. Patient verbalizes understanding of instruction. IV removed. Catheter intact and site benign. Pressure and 4x4 applied to site. No bleeding noted. PT ambulatory with a steady gait
[2021-07-30 20:13] VITALS: BP 138/78
[2021-07-30 21:02] LABS: BASOPHILS % (AUTO) 0.4 % (0.0-2.0); EOSINOPHILS % (AUTO) 0.6 % (0.0-6.0); HEMATOCRIT 44 % (39-51); HEMOGLOBIN 15.2 g/dL (13.5-17.5); LYMPHOCYTES # (AUTO) 0.8 K/uL (0.8-4.8); LYMPHOCYTES % (AUTO) 9.2 % (20.0-44.0); MEAN CORPUSCULAR HGB CONC 34 g/dl (31.0-36.0); MEAN CORPUSCULAR VOLUME 96 fL (80-96); MONOCYTES # (AUTO) 1.2 K/uL (0.1-1.30); MONOCYTES % (AUTO) 14.5 % (2.0-12.0); NEUTROPHILS # (AUTO) 6.4 K/uL (1.8-8.9); NEUTROPHILS % (AUTO) 75.3 % (43.0-81.0); PLATELET COUNT (AUTO) 223 K/uL (150-450); RED BLOOD CELL COUNT(AUTO) 4.57 MIL/uL (4.5-6.0); WHITE BLOOD COUNT (AUTO) 8.5 K/uL (4.3-11.0)
== END 2021-07-30 20:14 | disposition home or self-care (01) ==
LOC: ER 17:56
DX: K52.9 Noninfective gastroenteritis and colitis, unspecified (principal); Z79.899 Other long term (current) drug therapy
CPT/HCPCS: 36415; 74177; 80048; 80076; 83605; 83690; 85025; 96361; 96374; 96375; 99285; J1885; J2270; J2405; J7030; J7050; Q9967

== ENCOUNTER 2021-08-17 08:52 | Outpatient (CLI) | payer BC ==
[~2021-08-17 08:52] MED LIST: CIPR500T5 PO; HYDR-4209 PO; IBUP-1957 PO; METR-147 PO
[2021-08-17 11:54] LABS: BASOPHILS # (AUTO) 0.1 K/uL (0.0-0.2); BASOPHILS % (AUTO) 1.3 % (0.0-2.0); EOSINOPHILS % (AUTO) 2.2 % (0.0-6.0); HEMATOCRIT 41 % (39-51); HEMOGLOBIN 14.1 g/dL (13.5-17.5); LYMPHOCYTES # (AUTO) 1.2 K/uL (0.8-4.8); LYMPHOCYTES % (AUTO) 23.5 % (20.0-44.0); MEAN CORPUSCULAR HGB CONC 34 g/dl (31.0-36.0); MEAN CORPUSCULAR VOLUME 96 fL (80-96); MONOCYTES # (AUTO) 0.5 K/uL (0.1-1.30); MONOCYTES % (AUTO) 9.5 % (2.0-12.0); NEUTROPHILS # (AUTO) 3.1 K/uL (1.8-8.9); NEUTROPHILS % (AUTO) 63.5 % (43.0-81.0); PLATELET COUNT (AUTO) 304 K/uL (150-450); WHITE BLOOD COUNT (AUTO) 4.9 K/uL (4.3-11.0)
[2021-08-17 12:22] LABS: ALBUMIN 4.1 g/dL (3.4-5.0); BILIRUBIN,TOTAL 0.3 mg/dL (0.2-1.0); CALCIUM, SERUM 8.5 mg/dL (8.5-10.1); CREATININE 0.9 mg/dL (0.6-1.3); TOTAL PROTEIN, SERUM 7.6 g/dL (6.4-8.2)
== END 2021-08-17 23:59 | disposition home or self-care (01) ==
LOC: US 08:52
PROVIDERS: ATTEND Legal Medicine
DX: K80.20 Calculus of gallbladder without cholecystitis without obstruction (principal)
CPT/HCPCS: 36415; 76700-TC; 80053-TC; 82150-TC; 83690-TC; 85025-TC

== ENCOUNTER 2021-10-15 07:07 | Outpatient (CLI) | payer BC ==
[2021-10-15 09:39] LABS: BILIRUBIN,TOTAL 0.4 mg/dL (0.2-1.0); CALCIUM, SERUM 8.6 mg/dL (8.5-10.1); POTASSIUM 3.7 mmol/L (3.5-5.1); TOTAL PROTEIN, SERUM 7.4 g/dL (6.4-8.2)
[2021-10-15 11:39] LABS: PROSTATE SPECIFIC ANTIGEN SCR 2.47 ng/mL (0.00-4.00)
== END 2021-10-15 23:59 | disposition home or self-care (01) ==
LOC: LAB 07:07
PROVIDERS: ATTEND Surgery
DX: N40.1 Benign prostatic hyperplasia with lower urinary tract symptoms (principal)
CPT/HCPCS: 36415; 80053-TC; 84153-TC

== ENCOUNTER 2021-11-02 10:12 | Outpatient (CLI) | payer BC ==
[2021-11-02 11:24] LABS: BASOPHILS % (AUTO) 1.1 % (0.0-2.0); EOSINOPHILS % (AUTO) 3.5 % (0.0-6.0); HEMATOCRIT 40 % (39-51); HEMOGLOBIN 13.9 g/dL (13.5-17.5); LYMPHOCYTES # (AUTO) 1.1 K/uL (0.8-4.8); LYMPHOCYTES % (AUTO) 24.9 % (20.0-44.0); MEAN CORPUSCULAR HGB CONC 35 g/dl (31.0-36.0); MEAN CORPUSCULAR VOLUME 95 fL (80-96); MONOCYTES # (AUTO) 0.4 K/uL (0.1-1.30); MONOCYTES % (AUTO) 9.7 % (2.0-12.0); NEUTROPHILS # (AUTO) 2.7 K/uL (1.8-8.9); NEUTROPHILS % (AUTO) 60.8 % (43.0-81.0); PLATELET COUNT (AUTO) 237 K/uL (150-450); RED BLOOD CELL COUNT(AUTO) 4.19 MIL/uL (4.5-6.0); WHITE BLOOD COUNT (AUTO) 4.5 K/uL (4.3-11.0)
[2021-11-02 11:41] LABS: BILIRUBIN,TOTAL 0.5 mg/dL (0.2-1.0); CALCIUM, SERUM 8.4 mg/dL (8.5-10.1); TOTAL PROTEIN, SERUM 7.3 g/dL (6.4-8.2)
[2021-11-02 11:50] LABS: BILIRUBIN,URINE NEGATIVE (NEGATIVE); COLOR,URINE YELLOW (YELLOW); LEUKOCYTE ESTERASE ,URINE NEGATIVE (NEGATIVE); NITRITE, URINE NEGATIVE (NEGATIVE); PROTEIN,URINE NEGATIVE (NEGATIVE); UGLUCOSE NEGATIVE (NEGATIVE); UROBILINOGEN,URINE 0.2 EU/dL (0.2)
[2021-11-02 12:15] LABS: BACTERIA,URINE None seen /HPF (None Seen); SQUAMOUS EPITHELIAL CELL,UR Rare /HPF (None Seen); WBC,URINE 0-2 /HPF (0-3)
== END 2021-11-02 23:59 | disposition home or self-care (01) ==
LOC: RAD 10:12
PROVIDERS: ATTEND Legal Medicine
DX: Z01.818 Encounter for other preprocedural examination (principal); J98.4 Other disorders of lung; R06.02 Shortness of breath; R06.00 Dyspnea, unspecified
CPT/HCPCS: 36415; 71046; 80053-TC; 81001; 85025-TC; 85730-TC

== ENCOUNTER 2021-11-06 09:29 | Outpatient (CLI) | payer BC | END 2021-11-06 23:59 | disposition home or self-care (01) | LOC: LAB 09:29 | PROVIDERS: ATTEND Surgery | DX: Z01.812 Encounter for preprocedural laboratory examination (principal); Z20.822 Contact with and (suspected) exposure to COVID-19 | CPT/HCPCS: C9803; U0003 ==

== ENCOUNTER 2021-11-12 09:48 | Day surgery (SDC) | payer BC ==
[~2021-11-12] VITALS: Ht 172.7 cm; Wt 83.9 kg
[~2021-11-12 09:48] MED LIST changes: +ANESTHESIA TRAY IN PYXIS 1 EA TRAY MC ONE
[2021-11-12] MEDS ORDERED: ROCURONIUM BROMIDE 50 MG/5 ML ONE (10:07)
[2021-11-12] MEDS ORDERED: FENTANYL PF 100MCG/2ML AMPUL ONE (10:07)
[2021-11-12 11:00] VITALS: BP 127/85
[2021-11-12] MEDS ORDERED: KETOROLAC TROMETHAMINE INJ 30 MG/ML VIAL IV PRN (11:00)
[2021-11-12] MEDS ORDERED: HYDROMORPHONE INJ 2 MG/ML DISP.SYRIN IV PRN ×2 (11:00)
[2021-11-12] MEDS ORDERED: ONDANSETRON HCL/PF 4 MG/2 ML VIAL IVP PRN (11:00)
[2021-11-12] MEDS ORDERED: SEVOFLURANE 250 ML BOTTLE IH ONE (11:03)
[2021-11-12] MEDS ORDERED: IOHEXOL 240MG/ML 50 ML IV ONE (11:13)
--- NOTE | 2021-11-12 12:30 | NUR ---
PATIENT BACK FROM PROCEDURE, VITAL SIGN DOCUMENTED IN INTERVENTION. IN NO ACUTE DISTRESS NOTED. WILL CONTINUE TO MONITOR.
[2021-11-12] MEDS ORDERED: TAMS-12 PO (14:19)
--- NOTE | 2021-11-12 16:38 | NUR ---
PATIENT S/P CHOLECYSTITIS OUTPATIENT AND LEFT FACILITY WITH WHEEL CHAIR, ACCOMPANIED BY STAFF AND FAMILY TO THE PRIVATE CAR. PATIENT IN STABLE CONDITION, NO ACTIVE BLEEDING OBSERVED, KEPT INTACT ON S/P ABD SITE. GIVEN D/C INSTRUCTION INCLUDE NEW PAIN MEDIATIONS.
== END 2021-11-12 19:00 | disposition home or self-care (01) ==
LOC: DS 09:48 → MED 09:57 → UNDOADMIN 09:57 → MED 12:29 → UNDODISIN 16:30 → DS 19:00
PROVIDERS: ATTEND Surgery
PROC: 0FT44ZZ Resection of Gallbladder, Percutaneous Endoscopic Approach (ICD-10-PCS; principal; 2021-11-12)
PROC: 0FB04ZX Excision of Liver, Percutaneous Endoscopic Approach, Diagnostic (ICD-10-PCS; 2021-11-12)
DX: K80.20 Calculus of gallbladder without cholecystitis without obstruction (principal); N40.0 Benign prostatic hyperplasia without lower urinary tract symptoms; D13.4 Benign neoplasm of liver; Z98.890 Other specified postprocedural states; Z79.899 Other long term (current) drug therapy
CPT/HCPCS: 47100; 47562; J0690; J1100; J1885; J2405; J2704; J3010; J3490 ×2; J7030; Q9966; G0378

== ENCOUNTER 2022-02-25 08:06 | Outpatient (CLI) | payer BC ==
[~2022-02-25 08:06] MED LIST changes: -ANESTHESIA TRAY IN PYXIS 1 EA TRAY MC ONE; -CIPR500T5 PO; -HYDR-4209 PO; -IBUP-1957 PO; -METR-147 PO; +TAMS-12 PO
[2022-02-25 08:24] LABS: BASOPHILS % (AUTO) 0.5 % (0.0-2.0); HEMATOCRIT 42 % (39-51); HEMOGLOBIN 14.4 g/dL (13.5-17.5); LYMPHOCYTES # (AUTO) 1.5 K/uL (0.8-4.8); LYMPHOCYTES % (AUTO) 20.1 % (20.0-44.0); MEAN CORPUSCULAR HGB CONC 34 g/dl (31.0-36.0); MEAN CORPUSCULAR VOLUME 99 fL (80-96); MONOCYTES # (AUTO) 0.9 K/uL (0.1-1.30); MONOCYTES % (AUTO) 11.6 % (2.0-12.0); NEUTROPHILS # (AUTO) 5.1 K/uL (1.8-8.9); NEUTROPHILS % (AUTO) 66.8 % (43.0-81.0); PLATELET COUNT (AUTO) 256 K/uL (150-450); RED BLOOD CELL COUNT(AUTO) 4.27 MIL/uL (4.5-6.0); WHITE BLOOD COUNT (AUTO) 7.7 K/uL (4.3-11.0)
[2022-02-25 08:44] LABS: C-REACTIVE PROTEIN < 0.2 mg/dL (0.0-0.9)
[2022-02-25 08:47] LABS: ALANINE AMINOTRANSFERASE 45 U/L (12-78); ALBUMIN 4.3 g/dL (3.4-5.0); ALKALINE PHOSPHATASE 48 U/L (46-116); ASPARTATE AMINOTRANSFERASE 21 U/L (15-37); BILIRUBIN,TOTAL 0.6 mg/dL (0.2-1.0); CALCIUM, SERUM 8.7 mg/dL (8.5-10.1); CARBON DIOXIDE 25 mmol/L (21-32); CHLORIDE 103 mmol/L (98-107); GLUCOSE 100 mg/dL (74-106); MAGNESIUM 2.2 mg/dL (1.8-2.4); PHOSPHORUS 3.6 mg/dL (2.5-4.9); POTASSIUM 3.6 mmol/L (3.5-5.1); SODIUM SERUM 137 mmol/L (136-145); TOTAL PROTEIN, SERUM 7.9 g/dL (6.4-8.2); UREA NITROGEN, BLOOD 15 mg/dL (7-18)
== END 2022-02-25 23:59 | disposition home or self-care (01) ==
LOC: LAB 08:06
PROVIDERS: ATTEND Legal Medicine
DX: S83.242A Other tear of medial meniscus, current injury, left knee, initial encounter (principal); M22.42 Chondromalacia patellae, left knee; R53.1 Weakness; X58.XXXA Exposure to other specified factors, initial encounter; Y93.89 Activity, other specified; Y92.89 Other specified places as the place of occurrence of the external cause; Y99.8 Other external cause status
CPT/HCPCS: 36415; 73721-TC; 80053-TC; 83735-TC; 84100-TC; 85025-TC; 85652-TC; 86140-TC

== ENCOUNTER 2022-05-20 08:00 | Outpatient (CLI) | payer BC ==
[2022-05-20 09:54] LABS: THYROID STIMULATING HORMONE 3.096 uIU/mL (0.358-3.74)
[2022-05-21 08:06] LABS: FOLLICLE STIMULATION HORMONE 7.9 mIU/mL (1.5-12.4); LUTEINIZING HORMONE 6.1 mIU/mL (1.7-8.6); PROLACTIN 7.3 ng/mL (4.0-15.2)
== END 2022-05-20 23:59 | disposition home or self-care (01) ==
LOC: LAB 08:00
DX: N40.1 Benign prostatic hyperplasia with lower urinary tract symptoms (principal); Z00.00 Encounter for general adult medical examination without abnormal findings
CPT/HCPCS: 36415; 80061-TC; 82947-TC; 83001; 83002; 84146; 84403; 84443-TC

== ENCOUNTER → 2022-08-20 | Outpatient (CLI) | payer BC ==
[2022-08-20 08:33] LABS: GLUCOSE 108 mg/dL (74-106)
[2022-08-20 08:40] LABS: CHOLESTEROL 191 mg/dL (<200); HDL CHOLESTEROL 46 mg/dL (40-60); LDL 126 mg/dL (0-99); TRIGLYCERIDES 180 mg/dL (30-150)
== END | disposition home or self-care (01) ==
LOC: LAB 06:44
PROVIDERS: ATTEND Surgery
DX: N40.1 Benign prostatic hyperplasia with lower urinary tract symptoms (principal)
CPT/HCPCS: 36415; 80061-TC; 82947-TC

== ENCOUNTER 2022-11-05 10:17 | Outpatient (CLI) | payer BC | END 2022-11-05 23:59 | disposition home or self-care (01) | LOC: MRI 10:17 | PROVIDERS: ATTEND Legal Medicine | DX: M47.817 Spondylosis without myelopathy or radiculopathy, lumbosacral region (principal); M48.07 Spinal stenosis, lumbosacral region; M54.50 Low back pain, unspecified | CPT/HCPCS: 72148-TC ==

== ENCOUNTER 2023-08-01 11:12 | Day surgery (SDC) | payer BC ==
[2023-08-01 11:42] LABS: BASOPHILS # (AUTO) 0.1 K/uL (0.0-0.2); BASOPHILS % (AUTO) 1.9 % (0.0-2.0); EOSINOPHILS # (AUTO) 0.2 K/uL (0.0-0.7); EOSINOPHILS % (AUTO) 4.8 % (0.0-6.0); HEMATOCRIT 44 % (39-51); HEMOGLOBIN 14.9 g/dL (13.5-17.5); LYMPHOCYTES # (AUTO) 1.6 K/uL (0.8-4.8); LYMPHOCYTES % (AUTO) 34.5 % (20.0-44.0); MEAN CORPUSCULAR HEMOGLOBIN 33 PG (26.0-33.0); MEAN CORPUSCULAR HGB CONC 34 g/dl (31.0-36.0); MEAN CORPUSCULAR VOLUME 98 fL (80-96); MONOCYTES # (AUTO) 0.6 K/uL (0.1-1.30); MONOCYTES % (AUTO) 11.6 % (2.0-12.0); NEUTROPHILS # (AUTO) 2.3 K/uL (1.8-8.9); NEUTROPHILS % (AUTO) 47.2 % (43.0-81.0); PLATELET COUNT (AUTO) 224 K/uL (150-450); RED BLOOD CELL COUNT(AUTO) 4.48 MIL/uL (4.5-6.0); RED CELL DISTRIBUTION WIDTH 13.3 % (11.5-15.0); WHITE BLOOD COUNT (AUTO) 4.8 K/uL (4.3-11.0)
[2023-08-01] MEDS ORDERED: ANESTHESIA TRAY IN PYXIS 1 EA TRAY MC ONE (11:42)
[2023-08-01 11:53] LABS: INR 1.01 (0.91-1.10); PARTIAL THROMBOPLASTIN TIME 28.5 SEC (24.3-34.3); PROTHROMBIN TIME 10.7 SECS (9.2-11.1)
[2023-08-01 12:09] LABS: CALCIUM, SERUM 9.2 mg/dL (8.5-10.1); CREATININE 0.8 mg/dL (0.6-1.3); POTASSIUM 3.7 mmol/L (3.5-5.1)
[2023-08-01 12:14] LABS: ALBUMIN 4.2 g/dL (3.4-5.0); BILIRUBIN,TOTAL 0.5 mg/dL (0.2-1.0)
== END 2023-08-01 13:03 | disposition home or self-care (01) ==
LOC: DS 11:12
PROVIDERS: ATTEND Internal Medicine Gastroenterology
DX: K29.50 Unspecified chronic gastritis without bleeding (principal); K21.9 Gastro-esophageal reflux disease without esophagitis
CPT/HCPCS: 36415; 43239; 80053; 85025; 85610; 85730; 93005; J2704; J3490; J7030; 88305-TC; 88313-TC; 88342

== ENCOUNTER 2023-10-31 09:16 | Day surgery (SDC) | payer BC ==
[2023-10-31 09:49] LABS: BASOPHILS # (AUTO) 0.1 K/uL (0.0-0.2); BASOPHILS % (AUTO) 1.4 % (0.0-2.0); EOSINOPHILS # (AUTO) 0.2 K/uL (0.0-0.7); EOSINOPHILS % (AUTO) 4.5 % (0.0-6.0); HEMATOCRIT 42 % (39-51); HEMOGLOBIN 14.8 g/dL (13.5-17.5); LYMPHOCYTES % (AUTO) 23.4 % (20.0-44.0); MEAN CORPUSCULAR HEMOGLOBIN 34 PG (26.0-33.0); MEAN CORPUSCULAR HGB CONC 35 g/dl (31.0-36.0); MEAN CORPUSCULAR VOLUME 96 fL (80-96); MONOCYTES # (AUTO) 0.5 K/uL (0.1-1.30); MONOCYTES % (AUTO) 11.7 % (2.0-12.0); NEUTROPHILS # (AUTO) 2.6 K/uL (1.8-8.9); PLATELET COUNT (AUTO) 223 K/uL (150-450); RED BLOOD CELL COUNT(AUTO) 4.36 MIL/uL (4.5-6.0); RED CELL DISTRIBUTION WIDTH 12.5 % (11.5-15.0); WHITE BLOOD COUNT (AUTO) 4.4 K/uL (4.3-11.0)
[2023-10-31 10:03] LABS: CALCIUM, SERUM 9.3 mg/dL (8.5-10.1); CREATININE 0.9 mg/dL (0.6-1.3); POTASSIUM 3.8 mmol/L (3.5-5.1)
[2023-10-31 10:10] LABS: ALBUMIN 3.9 g/dL (3.4-5.0); BILIRUBIN,TOTAL 0.5 mg/dL (0.2-1.0); TOTAL PROTEIN, SERUM 7.8 g/dL (6.4-8.2)
[2023-10-31 10:12] LABS: INR 1.02 (0.91-1.10); PARTIAL THROMBOPLASTIN TIME 29.4 SEC (24.3-34.3); PROTHROMBIN TIME 10.8 SECS (9.2-11.1)
== END 2023-10-31 11:46 | disposition home or self-care (01) ==
LOC: DS 09:16
PROVIDERS: ATTEND Internal Medicine Gastroenterology
DX: R13.10 Dysphagia, unspecified (principal); K29.70 Gastritis, unspecified, without bleeding; K21.9 Gastro-esophageal reflux disease without esophagitis; N40.0 Benign prostatic hyperplasia without lower urinary tract symptoms; M19.90 Unspecified osteoarthritis, unspecified site; Z98.890 Other specified postprocedural states; Z79.899 Other long term (current) drug therapy
CPT/HCPCS: 36415; 43239; 71045; 80053; 85025; 85730; 93005; J2704; J3490; J7030; 88305-TC; 88313-TC; 88342

== ENCOUNTER 2024-05-11 06:15 | Outpatient (CLI) | payer BC, OTHER ==
[2024-05-11 08:58] LABS: BASOPHILS # (AUTO) 0.1 K/uL (0.0-0.2); BASOPHILS % (AUTO) 1.7 % (0.0-2.0); EOSINOPHILS # (AUTO) 0.2 K/uL (0.0-0.7); EOSINOPHILS % (AUTO) 4.7 % (0.0-6.0); HEMATOCRIT 41 % (39-51); HEMOGLOBIN 14.1 g/dL (13.5-17.5); LYMPHOCYTES # (AUTO) 1.3 K/uL (0.8-4.8); MEAN CORPUSCULAR HEMOGLOBIN 33 PG (26.0-33.0); MEAN CORPUSCULAR HGB CONC 34 g/dl (31.0-36.0); MEAN CORPUSCULAR VOLUME 97 fL (80-96); MONOCYTES # (AUTO) 0.5 K/uL (0.1-1.30); MONOCYTES % (AUTO) 13.2 % (2.0-12.0); NEUTROPHILS # (AUTO) 1.8 K/uL (1.8-8.9); NEUTROPHILS % (AUTO) 47.4 % (43.0-81.0); PLATELET COUNT (AUTO) 235 K/uL (150-450); RED BLOOD CELL COUNT(AUTO) 4.24 MIL/uL (4.5-6.0); RED CELL DISTRIBUTION WIDTH 13.1 % (11.5-15.0); WHITE BLOOD COUNT (AUTO) 3.9 K/uL (4.3-11.0)
[2024-05-11 09:06] LABS: IRON, SERUM 137 ug/dl (50-175); TOTAL IRON BINDING CAPACITY 352 ug/dl (250-450)
[2024-05-11 09:16] LABS: APPEARANCE,URINE CLEAR (CLEAR); BILIRUBIN,URINE NEGATIVE (NEGATIVE); BLOOD, URINE TRACE-INTA Ery/uL (NEGATIVE); COLOR,URINE YELLOW (YELLOW); KETONES,URINE NEGATIVE (NEGATIVE); LEUKOCYTE ESTERASE ,URINE NEGATIVE (NEGATIVE); NITRITE, URINE NEGATIVE (NEGATIVE); PROTEIN,URINE NEGATIVE (NEGATIVE); UGLUCOSE NEGATIVE (NEGATIVE); UROBILINOGEN,URINE 0.2 EU/dL (0.2)
[2024-05-11 09:17] LABS: ADD URINE CULTURE NO; BACTERIA,URINE Rare /HPF (None Seen); RHEUMATOID FACTOR SCREEN NEGATIVE (NEGATIVE); SQUAMOUS EPITHELIAL CELL,UR Few /HPF (None Seen); WBC,URINE 0-2 /HPF (0-3)
[2024-05-11 09:21] LABS: C-REACTIVE PROTEIN < 0.05 mg/dL (0.0-0.30); CHOLESTEROL 177 mg/dL (<200); FERRITIN 76 ng/mL (8-388); HDL CHOLESTEROL 42 mg/dL (40-60); LDL 121 mg/dL (0-99); PROSTATE SPECIFIC ANTIGEN SCR 3.14 ng/mL (0.00-4.00); TRIGLYCERIDES 206 mg/dL (30-150); URIC ACID 4.6 mg/dL (2.6-7.2)
[2024-05-11 09:31] LABS: ALANINE AMINOTRANSFERASE 37 U/L (12-78); ALBUMIN 4.2 g/dL (3.4-5.0); ALKALINE PHOSPHATASE 49 U/L (46-116); ASPARTATE AMINOTRANSFERASE 26 U/L (15-37); BILIRUBIN,TOTAL 0.5 mg/dL (0.2-1.0); CALCIUM, SERUM 8.7 mg/dL (8.5-10.1); CARBON DIOXIDE 28 mmol/L (21-32); CHLORIDE 105 mmol/L (98-107); CREATININE 0.8 mg/dL (0.6-1.3); GLUCOSE 88 mg/dL (74-106); NT-PRO BNP 73 pg/mL (0-125); POTASSIUM 3.9 mmol/L (3.5-5.1); SODIUM SERUM 140 mmol/L (136-145); TOTAL PROTEIN, SERUM 7.7 g/dL (6.4-8.2); UREA NITROGEN, BLOOD 18 mg/dL (7-18)
[2024-05-11 09:46] LABS: ERYTHROCYTE SEDIMENTATION RATE 11 MM/HR (0-20)
[2024-05-15 19:06] LABS: *TESTOSTERONE, FREE (DIRECT) 3.2 pg/mL (6.6-18.1)
[2024-05-18 11:07] LABS: CCP IgG/IgA AB 5 units (0-19)
== END 2024-05-11 23:59 | disposition home or self-care (01) ==
LOC: LAB 06:15
PROVIDERS: ATTEND Legal Medicine
DX: I12.9 Hypertensive chronic kidney disease with stage 1 through stage 4 chronic kidney disease, or unspecified chronic kidney disease (principal); E11.22 Type 2 diabetes mellitus with diabetic chronic kidney disease; E78.00 Pure hypercholesterolemia, unspecified; R53.1 Weakness; E11.9 Type 2 diabetes mellitus without complications; E55.9 Vitamin D deficiency, unspecified; N18.9 Chronic kidney disease, unspecified; D63.1 Anemia in chronic kidney disease
CPT/HCPCS: 36415; 80053-TC; 80061-TC; 81001; 82306; 82607-TC; 82728-TC; 83540-TC; 83880; 84153-TC; 84402-TC; 84443-TC; 84484-TC; 84550-TC; 85025-TC; 85652-TC; 86140-TC; 86200; 86431-TC